=== PATIENT | male | born 2005 | race Caucasian/White ===

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

== ENCOUNTER 2023-02-11 17:26 | Emergency (ER) | payer OTHER ==
[~2023-02-11] VITALS: Ht 182.8 cm; Wt 88.5 kg
[2023-02-11] MEDS ORDERED: SEPTDS PO (18:48)
[2023-02-11] MEDS ORDERED: MELOXICAM15 MG PO (18:48)
== END 2023-02-11 19:34 | disposition home or self-care (01) ==
LOC: ED 17:26
DX: L05.01 Pilonidal cyst with abscess (principal)

== ENCOUNTER 2024-09-18 19:06 | Emergency (ER) | payer SELFPAY ==
[~2024-09-18] VITALS: Ht 182.8 cm; Wt 90.7 kg
[~2024-09-18 19:06] MED LIST changes: +MELOXICAM15 MG PO
[2024-09-18] MEDS ORDERED: Lidocaine Hydrochloride 2% 10 ML AMP SC ONE (20:05)
[2024-09-18] MEDS ORDERED: Tdap Vaccine 0.5 ML SYR (Adult Vaccine) IM ONE (20:30)
== END 2024-09-18 21:00 | disposition home or self-care (01) ==
LOC: ED 19:06
DX: S60.453A Superficial foreign body of left middle finger, initial encounter (principal); Z79.899 Other long term (current) drug therapy; W45.8XXA Other foreign body or object entering through skin, initial encounter; Y93.89 Activity, other specified; Y92.89 Other specified places as the place of occurrence of the external cause; Y99.8 Other external cause status